=== PATIENT | male | born 1950 | race Caucasian/White ===

== ENCOUNTER 2018-01-04 05:45 | Day surgery (SDC) | payer OTHER ==
[~2018-01-04 05:45] MED LIST: CARVEDILOL6.25 MG PO; VALACYCLOVIR1000 MG PO
[2018-01-04] MEDS ORDERED: ZOFRAN ODT4 MG PO (09:27)
[2018-01-04] MEDS ORDERED: MIRALAX17 GM PO (09:27)
[2018-01-04] MEDS ORDERED: NEURONTIN300 MG PO (09:27)
[2018-01-04] MEDS ORDERED: PERCOCET 5-3251 EACH PO (09:27)
== END 2018-01-04 12:00 | disposition home or self-care (01) ==
LOC: CIR.AMB 05:45
DX: K40.90 Unilateral inguinal hernia, without obstruction or gangrene, not specified as recurrent (principal); D17.1 Benign lipomatous neoplasm of skin and subcutaneous tissue of trunk